=== PATIENT | male | born 1960 | race Caucasian/White ===

== ENCOUNTER 2019-05-09 07:44 | Day surgery (SDC) | payer BC ==
[~2019-05-09] VITALS: Ht 182.9 cm; Wt 112.0 kg
[~2019-05-09 07:44] MED LIST: ALLE180T33 PO; ECOT81TA5 PO; LISI10TA15 PO; NS 1,000 ML IV ONE; SIMV20TA22 PO; propofoL 200 MG/20 ML VIAL As Ordered ONE
--- NOTE | 2019-05-09 08:55 | ROOR ---
Patient Name: Michael Patel Procedure Date: 05/09/2019 8:29 AM Date of : 1960 Age: 58 Room: [facility] Gender: Male Note Status: Finalized Procedure: Colonoscopy Indications: High risk colon cancer surveillance: Personal history of colonic polyps Providers: Augusto Martell Jr, MD Referring MD: Jaden Davis MD Requesting Provider: Medicines: Propofol per Anesthesia Complications: No immediate complications. Procedure: Pre-Anesthesia Assessment: - Prior to the procedure, a History and Physical was performed, and patient medications and allergies were reviewed. The patient is competent. The risks and benefits of the procedure and the sedation options and risks were discussed with the patient. All questions were answered and informed consent was obtained. Patient identification and proposed procedure were verified by the physician and the nurse in the pre-procedure area and in the procedure room. Mental Status Examination: alert and oriented. Airway Examination: normal oropharyngeal airway and neck mobility. Respiratory Examination: clear to auscultation. CV Examination: normal. ASA Grade Assessment: II - A patient with mild systemic disease. After reviewing the risks and benefits, the patient was deemed in satisfactory condition to undergo the procedure. The anesthesia plan was to use moderate sedation / analgesia (conscious sedation). Immediately prior to administration of medications, the patient was re-assessed for adequacy to receive sedatives. The heart rate, respiratory rate, oxygen saturations, blood pressure, adequacy of pulmonary ventilation, and response to care were monitored throughout the procedure. The physical status of the patient was re-assessed after the procedure. The Colonoscope was introduced through the anus and advanced to the cecum, identified by appendiceal orifice and ileocecal valve. The colonoscopy was performed without difficulty. The patient tolerated the procedure well. The quality of the bowel preparation was adequate. Findings: The rectum, recto-sigmoid colon, descending colon, cecum, appendiceal orifice and ileocecal valve appeared normal. Two polyps were found in the transverse colon and ascending colon. The polyps were diminutive in size. These polyps were removed with a cold snare. Resection and retrieval were complete. Multiple small and large-mouthed diverticula were found in the sigmoid colon. Non-bleeding external and internal hemorrhoids were found during endoscopy. The hemorrhoids were Grade II (internal hemorrhoids that prolapse but reduce spontaneously) and Grade III (internal hemorrhoids that prolapse but require manual reduction). Impression: - The rectum, recto-sigmoid colon, descending colon, cecum, appendiceal orifice and ileocecal valve are normal. - Two diminutive polyps in the transverse colon and in the ascending colon, removed with a cold snare. Resected and retrieved. - Diverticulosis in the sigmoid colon. - Non-bleeding external and internal hemorrhoids. Recommendation: - Repeat colonoscopy in 5 years for surveillance. Augusto Martell MD Augusto Martell Jr, MD 05/09/2019 8:54:37 AM Electronically signed by Augusto Martell Jr, MD Number of Addenda: 0 Note Initiated On: 05/09/2019 8:29 AM Estimated Blood Loss: Estimated blood loss: none.
[2019-05-09] MEDS ORDERED: propofoL 200 MG/20 ML VIAL As Ordered ONE (09:03)
[2019-05-09 09:30] VITALS: BP 138/89
== END 2019-05-09 09:50 | disposition home or self-care (01) ==
LOC: M OPP 07:44
PROVIDERS: ATTEND Surgery
DX: Z12.11 Encounter for screening for malignant neoplasm of colon (principal); Z86.010 Personal history of colon polyps; K64.2 Third degree hemorrhoids; D12.3 Benign neoplasm of transverse colon; D12.2 Benign neoplasm of ascending colon; K57.30 Diverticulosis of large intestine without perforation or abscess without bleeding; Z79.899 Other long term (current) drug therapy; Z91.013 Allergy to seafood

== ENCOUNTER → 2020-04-13 | Outpatient (CLI) | payer BC ==
[~2020-04-13] MED LIST changes: -NS 1,000 ML IV ONE; -propofoL 200 MG/20 ML VIAL As Ordered ONE
--- NOTE | 2020-04-13 19:59 | REP ---
INDICATION: SOB COMPARISON: 03/14/2007. TECHNIQUE: PA/Lateral FINDINGS: Lungs: Clear, no infiltrate. Small stable nodule right upper lobe. Heart: Normal in size. Mediastinum: Mediastinal silhouette unremarkable. Pleural angles: Unremarkable.. Bones and soft tissues: There are mild degenerative changes of the spine without compression deformity. IMPRESSION: No acute pulmonary disease. <Electronically signed by David Dunn > 04/13/201954
== END ==
LOC: M WUC 15:35
PROVIDERS: ATTEND Family Medicine
DX: R06.02 Shortness of breath (principal)

== ENCOUNTER → 2020-04-27 | Outpatient (CLI) | payer BC ==
[~2020-04-27] MED LIST changes: +E-Z-GAS II EFFERVESCENT PACKET (SODIUM BICARB./CITRIC ACID/SIMETHICONE) As Ordered ONE; +E-Z-HD 98% w/w 340GM SUSP BTL As Ordered ONE; +E-Z-PAQUE 96% w/w SUSP 176GM BTL As Ordered ONE
--- NOTE | 2020-04-27 13:54 | REP ---
INDICATION: DYSPHAGIA. COMPARISON: Upper GI with small-bowel follow-through dated 01/09/2007 TECHNIQUE: This procedure was performed by EYAD Marquez, under the direct supervision of Dr. Dunn. Images were reviewed with Dr. Dunn prior to dictation. Liquid barium and gas producing crystals were given in the erect position, as well as liquid barium in the prone oblique position in order to perform a double contrast upper GI examination. FINDINGS: The inspecting engineer film shows no organomegaly or pathological masses. The intestinal gas pattern is unremarkable. The oral and pharyngeal stages of deglutition were unremarkable. Esophageal transport is prompt and efficient and there is no evidence of esophagitis, stricture, or mucosal ring. However tertiary contractions as well as feline esophagus were visualized during this exam. There is evidence of a hiatal hernia. Gastroesophageal reflux to the level of the anay was visualized. The stomach perez are normally outlined. The rugal folds are smooth and regular. There is no gastritis, neoplasm, or ulcerative disease. The duodenal perez are normally outlined. The mucosal folds appear thickened in the proximal duodenum, possibly due to duodenitis. the visualized portion of the proximal small bowel appears normal in course and caliber. IMPRESSION: 1. Tertiary contractions. 2. Feline esophagus. 3. Small hiatal hernia. 4. Gastroesophageal reflux to the level of the anay. 5. Thickened folds of the proximal duodenum, possibly due to duodenitis. 0.8 minutes of fluoroscopy time was utilized for this procedure. Some fluoroscopic images are performed with last image hold technology. These images require no additional radiation. <Electronically signed by Rosy Mayen > 04/27/20 1220 <Electronically signed by David Dunn > 04/27/20 1350
== END ==
LOC: M RAD 08:15
PROVIDERS: ATTEND Family Medicine
DX: R13.10 Dysphagia, unspecified (principal); K21.9 Gastro-esophageal reflux disease without esophagitis; K44.9 Diaphragmatic hernia without obstruction or gangrene